=== PATIENT | male | born 1945 | race Caucasian/White ===

== ENCOUNTER 2019-05-31 12:01 | Outpatient (CLI) | payer MEDICARE, SELFPAY ==
[2019-05-31 12:41] LABS: Basophils % 0.5 %; Eosinophils # 0.2 10^3/uL (0.0-0.8); Eosinophils % 2.3 %; Hematocrit 50.5 % (42.0-52.0); Hemoglobin 16.9 g/dL (11.7-16.6); Lymphocytes # 1.9 10^3/uL (0.8-4.8); Lymphocytes % 29.3 %; Mean Corpuscular HGB Conc 33.5 g/dL (30.0-36.0); Mean Corpuscular Hemoglobin 30.1 pg (28.0-34.0); Mean Platelet Volume 9.7 fL (7.4-10.4); Monocytes # 0.5 10^3/uL (0.2-0.9); Monocytes % 7.9 %; Neutrophils # 3.9 10^3/uL (1.8-7.7); Neutrophils % 59.7 %; Nucleated Red Blood Cells % 0 %; Platelet Count 217 10^3/cmm (130-400); Red Blood Count 5.61 10^6/uL (4.1-5.3); Red Cell Distribution Width 13.2 % (12.1-15.1); White Blood Count 6.6 10^3/uL (4.0-10.0)
[2019-05-31 13:05] LABS: Carcinoembryonic Antigen 0.9 ng/mL (0.0-4.7)
[2019-05-31 13:16] LABS: Alanine Aminotransferase 41 U/L (0-41); Albumin Level 4.1 g/dL (3.5-5.2); Alkaline Phosphatase 75 IU/L (40-130); Aspartate Amino Transferase 28 U/L (0-40); Blood Urea Nitrogen 18 mg/dL (8-23); Calcium 9.9 mg/dL (8.5-10.5); Carbon Dioxide 24 mmol/L (22-29); Chloride 100 mmol/L (98-107); Globulin 3.7 g/dL (1.3-4.6); Glucose 179 mg/dL (65-115); Sodium 138 mmol/L (136-145); Total Bilirubin 0.7 mg/dL (0.15-1.2); Total Protein 7.8 g/dL (6.6-8.7)
--- NOTE | 2019-06-04 13:51 | ONC FU_ITS ---
Dr. Alexis Patient Follow-Up Note Patient: Andrew Moore Unit #: [id number]: 1945 Dicatated By: Skyler Alexis M.D.Date of Visit:May 31, 2019 Onc Med Follow-up/Prog Note Chief Complaint: Rectal cancer. History of Present Illness: This is a 73 year-old man with moderately differentiated adenocarcinoma of the rectum, stage IIIC (ypT3, ypN2, M0). He had presented in November 2013 with a change in bowel habit and he was found on colonoscopy to have an ulcerating friable mass in the rectum involving one half the circumference and extending from 10 cm to 15 cm. The appearance was suspicious for malignancy. Biopsy did show well to moderately differentiated infiltrating adenocarcinoma. Two additional polyps in the colon were found to be adenomatous polyps, and an additional rectal polyp was hyperplastic. He was subsequently evaluated with CT abdomen/pelvis which did show a multi-lobular mass in the right lateral wall of the rectum. There appeared to be infiltration of the adjacent fat as well as abnormal appearance to the lymph nodes in the perirectal fat circumferentially around the rectum. He was referred to Dr. Almaraz in [place]. He subsequently completed additional staging with MRI of the pelvis. That study did confirm the presence of a bulky inferior rectal neoplasm which appeared to be invading through the muscularis propria into the mesorectal fat with either tumor extension or desmoplastic fibrotic reaction. The changes were noted to be extending to near the posterior margin of the mesorectal fascia. Inferiorly the tumor appeared to be extending into the internal sphincter muscle superiorly. There were suspicious lymph nodes both internal and external to the mesorectal fascia. By clinical evaluation his disease appeared to be at least stage IIIB, and most likely stage IIIC (T3, N2, M0). He was given neoadjuvant chemoradiation utilizing Xeloda for the chemosensitization. He completed treatment on 01/17/14 to a total dose of 5040 cGy. He underwent low anterior resection with placement of looped ileostomy in [place] on 02/28/14. Pathology showed low grade adenocarcinoma measuring 2 x 1.8 and 1.2 cm. There was invasion through the muscularis propria into the perirectal adipose tissue. Margins were uninvolved. There was involvement, though, in 8 of 24 lymph nodes. His disease posttreatment was stage IIIC (ypT3, ypN2b, M0). He was given postoperative adjuvant chemotherapy with oxaliplatin/Xeloda. As of 06/13/14 he had completed 4 cycles of treatment. I did opt to stop his chemotherapy at that point, as he was experiencing increasing neuropathy and other side effects. He subsequently was able to undergo takedown of the ileostomy. His other medical illnesses have been limited to hypertension and borderline diabetes. He has not been requiring medication for either problem. He is a nonsmoker. He does have a history of alcohol abuse in the past, but he quit drinking at age 33. INTERIM HISTORY: He had surveillance colonoscopy with Dr. Smart on 08/15/2015. He was noted to have an anal stricture on digital exam. It was dilated digitally. The rectal mucosa was noted to be erythematous. Two 3 mm sessile polyps were removed with cold biopsy forceps. Exam to the cecum was otherwise unremarkable. Pathology showed chronic colitis with limited mild activity. There was no dysplasia identified. I had seen him for a scheduled follow-up visit on 05/09/2016. At that time he was feeling pretty good generally, but he was having significant problems with his bowel function and with associated abdominal distention/bloating. His CEA level had gone up a little, to 5.2 ng/mL. Restaging CT abdomen/pelvis showed evidence of distal large bowel obstruction, possibly due to recurrent neoplasm or anastomotic stricture. There was some abnormal presacral soft tissue noted, felt to be suspicious for recurrent neoplasm. He was then seen by Dr. Almaraz and he underwent placement of a blow hole ostomy for anastomotic stricture. There was apparently no evidence of recurrent tumor. In August he underwent placement of a permanent ostomy. In November 2016 he was found to have evidence of presacral abscess on the right side. He underwent percutaneous placement of a drainage catheter, which he tolerated very poorly. The catheter subsequently was removed. He subsequently had ongoing problems with pain in the right buttock area and persistent drainage at the catheter site. His CT abdomen/pelvis on 12/04/2016 showed a 3 x 2 cm rim-enhancing fluid collection in the presacral pelvis compatible with presacral abscess. There was surrounding soft tissue thickening in the presacral region surrounding the abscess which had increased in thickness compared to a prior study from May 2016. There was no evidence of metastatic involvement. Repeat CT on 05/29/2017 showed extensive presacral soft tissue thickening at the site of the prior rectosigmoidectomy. There was abscess-like collection measuring 4.6 x 3.4 cm in the right perirectal area, consistent with persistent or recurrent abscess. The findings were similar to the November study. Also noted was a new right paraumbilical hernia containing a loop of nondilated small bowel. There was no evidence of recurrent or metastatic disease. He then returned to Dr. Aldana and he again underwent placement of a percutaneous drainage catheter. He tolerated that procedure much better, and within a month or so the catheter was able to be removed. Surveillance CT scans of the chest, abdomen, and pelvis on 05/05/2018 showed no evidence of neoplastic process of the chest. There were stable hepatic and right renal cysts noted. An additional lower pole left renal hyperdense cyst or solid mass also appeared stable from prior exams. Diffuse bladder wall thickening was noted to be less pronounced compared to the study from May 2017. There was persistent diffuse presacral soft tissue thickening and resolution of previously noted right-sided perirectal abscess. At that point he was doing much better clinically, and he continued observation/expectant management for the rectal cancer. He is seen for a scheduled visit. He has been feeling good generally. He has good energy, and his activity now is pretty much normal. His ECOG score is 0. He has good appetite and he has gained weight. He has no fever or night sweats. He recently has had some sinus congestion/nasal stuffiness, and he has had some cough with that. He normally does not have any cough, and he does not complain of shortness of breath or chest pain. He has no GI complaints. His bowel function is generally good with the ostomy. His bladder function has improved. He does have some pain in his right knee. He continues to have some numbness/tingling in his feet. Medications: Joint Support 2 Capsule Oral daily, Multivitamin Adult 1 Tablet Oral daily Allergies: No Known Allergies. Review of Systems: Constitutional - His energy is good. He has normal activity. His appetite is good and his weight is up almost 20 pounds since his last visit. No fever, chills, hot flashes, or night sweats. ECOG score is 0, ENMT - He currently has some sinus congestion. He has a cough with a sore throat. No mouth sores. No difficulty swallowing, Hematologic/Lymphatic - No abnormal bruising or bleeding, Respiratory - No shortness of breath. No pleuritic pain or hemoptysis, Cardiovascular - No angina pain. No palpitations, Gastrointestinal - No nausea or vomiting. No heartburn or acid reflux. He has the colostomy and it is working well. No diarrhea or constipation. No blood in the stool or black stools, Genitourinary (M) - No dysuria or hematuria. No urinary frequency. No urgency or incontinence, Musculoskeletal - He has pain in his right knee, Integumentary - No skin complications, Neurologic - No headache or dizziness. He has neuropathy in his feet, Psychiatric - No anxiety or depression. No insomnia. Vital Signs: Performed on May 31, 2019 13:16 Height - 72.00 in Weight - 263.6 lbs (HIGH) BSA - 2.40 sq.m BMI - 35.75 (HIGH) Temperature - 98.5 F Pulse - 72 /min Respiration - 20 /min BP - 168/92 mm(hg) (HIGH) O2 Sat - 97 % Pain - 0 Physical Examination: Constitutional - He looks good generally, Eyes - Sclerae nonicteric. Conjunctivae clear, ENMT - There are no lesions noted in the oral cavity, Hematologic/Lymphatic - No cervical, clavicular, or axillary adenopathy, Respiratory - Lungs are clear with good air movement bilaterally, Cardiovascular - Heart rhythm is regular. There is no murmur, gallop, or rub noted, Abdomen - Mildly distended but soft. There is a herniation at the ostomy site. Liver and spleen are not enlarged. There is no abdominal mass or ascites noted and there is no inguinal adenopathy, Extremities - No edema. Pedal pulses are palpable bilaterally, Neurologic - No focal neurologic deficits noted. Lab/Imaging: Test performed on May 31, 2019 12:22 Sodium 138 mmol/L Potassium 4.0 mmol/L Chloride 100 mmol/L CO2 24 mmol/L Anion Gap 18.0 BUN 18 mg/dL Creatinine 1.0 mg/dL Cr Clearance (Est) 112.93 mL/min Glucose 179 mg/dL Calcium 9.9 mg/dL Protein, Total 7.8 g/dL Albumin 4.1 g/dL Globulin 3.7 g/dL Bilirubin, Total 0.7 mg/dL ALT (SGPT) 41 U/L AST (SGOT) 28 U/L Alkaline Phosphatase 75 IU/L WBC 6.6 10 3/uL RBC 5.61 10 6/uL HGB 16.9 g/dL HCT 50.5 % MCV 90.0 fL MCH 30.1 pg MCHC 33.5 g/dL RDW 13.2 % Platelet Count 217 10 3/cmm MPV 9.7 fL Neutrophils 3.9 10 3/uL Lymphocytes 1.9 10 3/uL Monocytes 0.5 10 3/uL Eosinophils 0.2 10 3/uL Basophils 0.0 10 3/uL Neutrophil % 59.7 % Lymphocyte % 29.3 % Monocyte % 7.9 % Eosinophil % 2.3 % Basophils % 0.5 % CEA 0.9 ng/mL Impression: 1. The patient has well to moderately differentiated adenocarcinoma of the rectum, stage IIIC, initially diagnosed in November 2013. 2. Treatment included neoadjuvant chemoradiation followed by surgical resection in February 2014. He had a complete resection, but pathology did show involvement in 8 of 24 lymph nodes. 3. He was given postoperative adjuvant chemotherapy with oxaliplatin/Xeloda. He did require a dose reduction in the oxaliplatin with the 3rd cycle due to significant worsening of neuropathy symptoms, and I did opt to stop his treatment after 4 cycles, which he completed in June 2014. 4. He subsequently was able to undergo reversal of the ileostomy, and he has since then continued observation/expectant management. His other medical illnesses include: 5. Hypertension. 6. Borderline diabetes. 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 He also had evidence of stricture on his surveillance colonoscopy in August 2015. On his follow-up visit in May 2016 there was a significant increase in his CEA level. His surveillance CT scans showed evidence of distal large bowel obstruction. He was referred to Dr. Almaraz, and he underwent placement of blow hole ostomy. In August 2016 he underwent placement of permanent ostomy. In November 2016 he was found to have presacral abscess on the right side. He underwent placement of percutaneous drainage catheter, which he tolerated poorly. The catheter subsequently was removed. He then continued to have some pain in the right buttock area, and he continued to have drainage at the catheter site. His repeat CT scan in May 2017 showed persistent perirectal abscess on the right side. There was no evidence of recurrent or metastatic disease. He then underwent replacement of the percutaneous drainage catheter, which he tolerated much better. Within a month or so the catheter was able to be removed. He has since then remained on observation/expectant management. He has developed hypertension. He has otherwise been doing well clinically with no evidence of recurrence of the rectal cancer. Plan: He will start lisinopril 5 mg daily for the hypertension. He will continue on observation/expectant management for the rectal cancer. He should have yearly lab screening with CBC, CMP, and CEA level. He should had further CT imaging only as indicated based on symptoms or findings. He is going to continue regular follow-up now with Dr. Obrien, and he also will continue his regular follow-up with Dr. Almaraz. I will just see him again as needed. Signed By: Skyler Alexis M.D. <<Signature on File>>
== END 2019-05-31 12:02 | disposition home or self-care (01) ==
LOC: ONCMED 12:01
PROVIDERS: Family Provider Nurse Practitioner Family; PCP Family Medicine; Visit Provider Internal Medicine Medical Oncology
DX: Z08 Encounter for follow-up examination after completed treatment for malignant neoplasm (principal); Z85.048 Personal history of other malignant neoplasm of rectum, rectosigmoid junction, and anus; I10 Essential (primary) hypertension; R73.03 Prediabetes; M25.561 Pain in right knee; Z92.21 Personal history of antineoplastic chemotherapy; Z92.3 Personal history of irradiation
CPT/HCPCS: 36415; 80053; 82378; 85025; G0463

== ENCOUNTER → 2019-09-14 15:23 | Outpatient (BNVA) | payer MEDICARE, SELFPAY | PROVIDERS: Family Provider Nurse Practitioner Family; PCP Family Medicine; Visit Provider Family Medicine | DX: I10 Essential (primary) hypertension (principal); N52.9 Male erectile dysfunction, unspecified; R73.9 Hyperglycemia, unspecified | CPT/HCPCS: 36416; 82962 ==

== ENCOUNTER → 2020-02-28 11:49 | Outpatient (BNVA) | payer MEDICARE, SELFPAY | PROVIDERS: PCP Family Medicine; Visit Provider Nurse Practitioner Family | DX: Z11.59 Encounter for screening for other viral diseases (principal) | CPT/HCPCS: 87635 ==

== ENCOUNTER 2020-02-29 11:31 | Emergency (ER) | payer MEDICARE, SELFPAY ==
[2020-02-29 11:39] VITALS: BP 176/98; PULSE 75; RESP 18; TEMP 36.5; O2SAT 94; BMI 33.9
--- NOTE | 2020-02-29 11:54 | US_ITS ---
WS: [id number] ABDOMINAL ULTRASOUND LIMITED REASON FOR VISIT: abd pain TECHNIQUE: Grayscale and Doppler ultrasound examination of the abdomen. FINDINGS: Pancreas: Not diagnostically visualized. Abdominal aorta and IVC: Visualized portions were unremarkable. Liver: Liver measures 16.1 cm in length. Echotexture was heterogeneous. There were several small low- attenuation regions in the liver adjacent to the gallbladder. Normal portal venous blood flow. Gallbladder: Gallbladder wall thickness measures 0.3 mm. No calculus was demonstrated. Common bile du ct was normal caliber. Right kidney: Right kidney measures 12.1 cm x 6.4 cm x 7.2 cm. Right kidney cortex measures 1.3 cm. N o hydronephrosis or calculus. There is a sonolucent mass which measures 3.56 x 3.33 cm. No free fluid. US/US gall bladder [id number] IMPRESSION: Difficult examination due to the anatomy of the liver and its relation to the g as-filled colon. Although no gallbladder calculi were at this time, a 9 mm calcified stone was p resent on the CT scan of 05/05/2018. The sonolucent mass in the right kidney was shown to be a renal cyst on the abo ve CT scan. The small sonolucencies in the liver are of some concern. The patient had some small cystic like areas and other vague areas of low-attenuation in the liver o n the above-mentioned CT scan, however these lesions do not appear to correlate . Due to the patient's history of rectal carcinoma a [address] scan of the [facility] er to evaluate for metastasis would be reasonable.
--- NOTE | 2020-02-29 11:54 | ECG_ITS ---
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
--- NOTE | 2020-02-29 11:55 | W.ED.ABDPA2 ---
HPI - Abdominal Pain General: Chief Complaint: Abdominal Pain Stated Complaint: ABD PAIN Time Seen by Provider: 02/29/20 11:47 Source: patient Mode of arrival: ambulatory Limitations: no limitations History of Present Illness: HPI narrative: 74-year-old male states he had right upper quadrant abdominal pain since Friday. He states that it subsided for a while and has returned. States it is worse when he twists or palpation. Improved with rest. No association with food. States pain is currently 3 out of 10. Denies any vomiting or fever. Denies any chest pain. MD elicited complaint: abdominal pain Associated Symptoms: Denies chills, dysuria and fever(s) Review of Systems Const: Denies: fever(s), chills, body aches or change in appetite Eyes: Denies: blurry vision or eye discomfort ENMT: Denies: throat pain or dental pain Card: Denies: chest pain Resp: Denies: dyspnea GI: Reports: abdominal pain : Denies: dysuria Musc: Denies: neck pain or back pain Skin/Breast: Denies: rash Neuro: Denies: headache(s) Psych: Denies: depression Cristian/Lymph: Denies: easy bruising All/Imm: Denies: urticaria PFSH ED PFSH: Medical History (Updated 02/29/20 @ 16:10 by Osito Adan MD) Erectile dysfunction Surgical History (Updated 02/28/20 @ 13:52 by Nela Huerta APRN) History of colon resection Family History (Updated 09/14/19 @ 14:57 by Arpan He LPN) Other Prostate cancer Social History (Updated 02/29/20 @ 11:45 by Robbin Ward RN) Smoking and tobacco status: never smoked Second hand smoke exposure: No Smoking risk assessment/counseling performed?: No Alcohol intake: never Physical Exam Const: COMMON NORMALS: no acute distress, patient oriented x3 and healthy appearing HENMT: COMMON NORMALS: normocephalic and atraumatic HEAD & SCALP: normocephalic and atraumatic Eye: COMMON NORMALS: Equal, round and reactive pupils present and EOMs intact bilaterally PUPIL: Yes Equal, round and reactive pupils present Neck/C-Spine: COMMON NORMALS: full ROM and supple Chest: COMMONS NORMALS: normal inspection of the chest and normal palpation of entire chest wall Resp: COMMON NORMALS: normal respiratory effort, No retractions, No use of accessory muscles and clear to auscultation bilaterally AUSCULTATION: clear to auscultation bilaterally Cardio: COMMON NORMALS: regular rate, regular rhythm and No murmurs present (Cardio) RATE: regular rate RHYTHM: regular rhythm GI: COMMON NORMALS: Normal to inspection, nondistended, normoactive bowel sounds present, Soft to palpation and no masses PALPATION: Yes Soft to palpation OTHER: Slight tenderness over right upper quadrant and right mid abdomen Extremity: COMMON NORMALS: normal to inspection and full ROM Neuro: COMMON NORMALS: patient oriented x3, moves all extremities and no focal motor deficits Psych: COMMON NORMALS: mental status grossly normal, Normal thought process present and cooperative THOUGHT PROCESS: Normal thought process present Skin: COMMON NORMALS: no rashes or lesions noted and no wounds GENERAL SKIN EXAM: no rashes or lesions noted Course Vital Signs: Vital signs: Vital Signs Temperature 97.7 F 02/29/20 11:39 Pulse Rate 75 02/29/20 11:39 Respiratory Rate 18 02/29/20 12:41 Blood Pressure 176/98 02/29/20 11:39 Pulse Oximetry 96 02/29/20 12:41 MDM - Abdominal Pain MDM Narrative: Medical decision making narrative: Andrew presents here with abdominal pain with likely cholecystitis. Patient's white count here is normal and he is pain-free. I spoke to surgeon on-call and also spoke with patient and came to agreement that he would follow-up outpatient and have outpatient surgery. He is to see Dr. Javed in his office tomorrow at 1130. We will start him on Augmentin. I did inform patient if he has any increase of pain or fever he is to return immediately. He understands and agrees to this plan. Lab Data: Labs: Lab Results 02/29/20 02/29/20 02/29/20 Range/Units 12:10 12:10 13:08 WBC 8.4 (4.0-10.0) 10^3/ uL RBC 5.31 H (4.1-5.3) 10^6/u L Hgb 15.6 (11.7-16.6) g/dL Hct 48.8 (42.0-52.0) % MCV 91.9 (80-94) fL MCH 29.4 (28.0-34.0) pg MCHC 32.0 (30.0-36.0) g/dL RDW 13.2 (12.1-15.1) % Plt Count 237 (130-400) 10^3/c mm MPV 9.7 (7.4-10.4) fL Neut % (Auto) 65.4 % Lymph % (Auto) 19.1 % Crenshaw % (Auto) 11.6 % Eos % (Auto) 2.9 % Baso % (Auto) 0.6 % Neut # (Auto) 5.50 (1.8-7.7) 10^3/u L Lymph # (Auto) 1.6 (0.8-4.8) 10^3/u L Crenshaw # (Auto) 1.0 H (0.2-0.9) 10^3/u L Eos # (Auto) 0.2 (0.0-0.8) 10^3/u L Baso # (Auto) 0.1 (0.0-0.1) 10^3/u L Nucleated RBC % (a uto) 0 % Nucleated RBCs # 0.0 /100WBC Sodium 137 (136-145) mmol/L Potassium 3.5 (3.5-5.1) mmol/L Chloride 98 (98-107) mmol/L Carbon Dioxide 25 (22-29) mmol/L Anion Gap 17.5 (5-19) BUN 16 (8-23) mg/dL Creatinine 0.9 (0.7-1.2) mg/dL GFR Calculation Not Reportable Glucose 129 H (65-115) mg/dL Calculated Osmolal ity 287 (285-295) mOsm/k g Calcium 8.8 (8.5-10.5) mg/dL Total Bilirubin 0.8 (0.15-1.2) mg/dL AST 29 (0-40) U/L ALT 55 H (0-41) U/L Alkaline Phosphata se 80 (40-130) IU/L Total Protein 7.1 (6.6-8.7) g/dL Albumin 3.9 (3.5-5.2) g/dL Globulin 3.2 (1.3-4.6) g/dL Lipase 31 (13-60) U/L Urine Color Yellow (Yellow) Urine Appearance Clear (CLEAR) Urine pH 5.0 (5-7) Ur Specific Gravit y 1.015 (1.005-1.030) Urine Protein Neg (Negative) Urine Glucose (UA) Norm (Normal) Urine Ketones Negative (Negative) Urine Blood Neg (Negative) Urine Nitrate Negative (Negative) Urine Bilirubin Neg (Negative) Urine Urobilinogen 1 H (Negative) mg/dL Ur Leukocyte Karoline ase Negative (Negative) Imaging Data ^: CT Abd/Pel: Radiologist's impression: [address] [place] [address] CT Scan Report Signed Patient: Andrew Moore Unit #: [id number] : 1945 Age/Sex: 74 / M ADM Date: 02/29/20 Loc: ER Room/Bed: Attending Dr: Ordering Provider/Ordering MD: Osito Adan MD Date of Service: 02/29/20 Procedure(s): CT abdomen pelvis w con* [id number] Accession Number(s): [id number] Report Number: [id number] WS: [id number] CT abdomen pelvis w con* [id number] REASON FOR EXAM: abd pain IV CONTRAST ADMINISTERED: 95 mL of Omnipaque 300. TOTAL EXAM DLP: 1664.[address] scans at [facility] use at least one of these dose optimization techniques: automated exposure control; mA and/or kV adjustment per patient size (includes targeted exams where dose is matched to clinical indication); or iterative reconstruction. FINDINGS: ABDOMEN: Comparison examination 05/05/2018. Spleen and pancreas are unchanged and without focal abnormality. Several 1 mm to 2 mm cysts are seen within the liver. No definite metastatic disease. The gallbladder wall is thickened and enhancing compared to the previous examination and on axial image 26 there is a thin line of low attenuation. The liver adjacent to the gallbladder shows inhomogeneity in enhancement but overall enhances more than the remainder of the liver. The calculus previously seen in the body of the gallbladder is now within the distal most neck adjacent to the cystic duct. The gallbladder wall is most thickened in this region and there is hazy density in the adjacent fat. A calcified calculus is approximately 8 to 9 mm in diameter. Ostomy site in the left lower quadrant. Herniation of fat and bowel through the defect in the anterior abdominal wall at this location. More superiorly there is a large periumbilical hernia through a large defect in the abdominal wall. It contains fat and small bowel. The appendix is not identified however there are no inflammatory changes in the fat of the right abdomen. The kidneys are unchanged with several small cysts and a 3 to have centimeters cyst in the right kidney and a 2 cm cyst in the left kidney. No renal calculi. No ureteral calculi. No abdominal adenopathy or mass. No focal fluid or free fluid. PELVIS: This portion of the examination is compared to a previous study of 05/29/2017. There is thickening of the urinary bladder wall. There is a presacral mass which measures 6 cm in maximal dimension. The previous examination it measured 9.5 cm in maximum dimension. There are no fluid attenuation regions within this mass as noted on the previous study. CT/CT abdomen pelvis w con* [id number] IMPRESSION: Cholelithiasis and cholecystitis. The calculus is felt to be obstructing the gallbladder neck and the gallbladder wall is inflamed and with some edema. There are reactive changes in the fat and adjacent liver. Hernias as noted above. No liver metastases. 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 The mass is smaller than on the previous examination but still measures 6 cm in diameter. EKG Data ^: EKG 1: Attestation: I personally reviewed and interpreted this EKG as follows: EKG interpretation date: 02/29/20 EKG interpretation time: 13:09 Interpretation: nsr hr [address] or t wave abnormalities qrs 91 qtc 343 Discharge Plan Discharge Patient Disposition: Home Clinical Impression: Cholecystitis Condition: Stable Prescriptions: New ondansetron 4 mg tablet,disintegrating 4 mg PO Q6H PRN (Reason: nausea and vomiting) Qty: 14 RF: 0 Augmentin 875-125 mg tablet 1 tab PO BID Qty: 14 RF: 0 No Action geriatric [id number]-ldqd-cmib Tablet 1 tab PO DAILY RF: 0 omega-3 fatty acids [Fish Oil Concentrate] 1,000 mg capsule 1,000 mg PO DAILY RF: 0 sildenafil 100 mg tablet 100 mg PO DAILY PRN (Reason: sexual activity) Qty: 10 RF: 3 losartan 50 mg tablet 50 mg PO DAILY Qty: 90 RF: 3 glucosamine HCl 750 mg tablet 750 mg PO BID RF: 0 Discharge Orders: Discharge Order (Routine); Ordered 02/29/20 Ordered By: Osito Adan Referrals: Gilda Obrien MD [Primary Care Provider] - Ham Javed MD [Physician] - (appt tomorrow at 1130) Discharge Diet: Advance as tolerated Discharge Activity: Resume usual activity Coding Level of Care Code ED Accounting Intern for Chg Fwd Exam Comprehensive
[2020-02-29 12:26] LABS: Basophils # 0.1 10^3/uL (0.0-0.1); Basophils % 0.6 %; Eosinophils # 0.2 10^3/uL (0.0-0.8); Eosinophils % 2.9 %; Hematocrit 48.8 % (42.0-52.0); Hemoglobin 15.6 g/dL (11.7-16.6); Lymphocytes # 1.6 10^3/uL (0.8-4.8); Lymphocytes % 19.1 %; Mean Corpuscular Hemoglobin 29.4 pg (28.0-34.0); Mean Corpuscular Volume 91.9 fL (80-94); Mean Platelet Volume 9.7 fL (7.4-10.4); Monocytes % 11.6 %; Neutrophils % 65.4 %; Nucleated Red Blood Cells % 0 %; Platelet Count 237 10^3/cmm (130-400); Red Blood Count 5.31 10^6/uL (4.1-5.3); Red Cell Distribution Width 13.2 % (12.1-15.1); White Blood Count 8.4 10^3/uL (4.0-10.0)
[2020-02-29 12:41] VITALS: RESP 18; O2SAT 96
[2020-02-29] MEDS: morphine 4 mg/mL SDV 1 mL IVP (12:41)
[2020-02-29] MEDS: ondansetron 2 mg/ML SDV 2 mL 4 MG IVP (12:43)
[2020-02-29 12:54] LABS: Alanine Aminotransferase 55 U/L (0-41); Albumin Level 3.9 g/dL (3.5-5.2); Alkaline Phosphatase 80 IU/L (40-130); Anion Gap 17.5 (5-19); Aspartate Amino Transferase 29 U/L (0-40); Blood Urea Nitrogen 16 mg/dL (8-23); Calcium 8.8 mg/dL (8.5-10.5); Carbon Dioxide 25 mmol/L (22-29); Chloride 98 mmol/L (98-107); Globulin 3.2 g/dL (1.3-4.6); Glucose 129 mg/dL (65-115); Lipase 31 U/L (13-60); Osmolality Calculated 287 mOsm/kg (285-295); Potassium 3.5 mmol/L (3.5-5.1); Sodium 137 mmol/L (136-145); Total Bilirubin 0.8 mg/dL (0.15-1.2); Total Protein 7.1 g/dL (6.6-8.7)
[2020-02-29 13:24] LABS: Add Urine Microscopic? NO
--- NOTE | 2020-02-29 13:25 | CT_ITS ---
WS: [id number] CT abdomen pelvis w con* [id number] REASON FOR EXAM: abd pain IV CONTRAST ADMINISTERED: 95 mL of Omnipaque 300. TOTAL EXAM DLP: 1664.[address] scans at [facility] use at least one of these dose optimization techniques: automat ed exposure control; mA and/or kV adjustment per patient size (includes targeted exams where dose is matched to clinical indication); or iterative reconstruction. FINDINGS: ABDOMEN: Comparison examination 05/05/2018. Spleen and pancreas are unchanged and without focal abnormality. Several 1 mm to 2 mm cysts are seen within the liver. No definite metastatic disease. The gallbladder wall is thickened and enhancing compared to the previous examination and on axial johana ge 26 there is a thin line of low attenuation. The liver adjacent to the gallbladder shows inhomogene ity in enhancement but overall enhances more than the remainder of the liver. The calculus previously seen in the body of the gallbladder is now within the distal most neck adjacent to the cystic duct. The gallbladder wall is most thickened in this region and there is hazy density in the adjacent fat. A calcified calculus is approximately 8 to 9 mm in diameter. Ostomy site in the left lower quadrant. Herniation of fat and bowel through the defect in the anterio r abdominal wall at this location. More superiorly there is a large periumbilical hernia through a la rge defect in the abdominal wall. It contains fat and small bowel. The appendix is not identified how ever there are no inflammatory changes in the fat of the right abdomen. The kidneys are unchanged with several small cysts and a 3 to have centimeters cyst in the right kidn ey and a 2 cm cyst in the left kidney. No renal calculi. No ureteral calculi. No abdominal adenopathy or mass. No focal fluid or free fluid. PELVIS: This portion of the examination is compared to a previous study of 05/29/2017. There is thickening of the urinary bladder wall. There is a presacral mass which measures 6 cm in max imal dimension. The previous examination it measured 9.5 cm in maximum dimension. There are no fluid attenuation regions within this mass as noted on the previous study. CT/CT abdomen pelvis w con* [id number] IMPRESSION: Cholelithiasis and cholecystitis. The calculus is felt to be obstructing the ga llbladder neck and the gallbladder wall is inflamed and with some edema. There are reactive changes in the fat and adjacent liver. Hernias as noted above. No liver metastases. 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 The mass is sm aller than on the previous examination but still measures 6 cm in diameter.
[2020-02-29 13:44] LABS: Bilirubin Urine Neg (Negative); Blood Urine Neg (Negative); Glucose Urine UA Norm (Normal); Ketones Urine Negative (Negative); Leukocyte Esterase Urine Negative (Negative); Nitrate Urine Negative (Negative); Protein Urine Neg (Negative); Specific Gravity, Urine 1.015 (1.005-1.030); Urine Appearance Clear (CLEAR); Urine Color Yellow (Yellow); Urobilinogen Urine 1 mg/dL (Negative)
[2020-02-29] MEDS: iohexol 300 mg/mL 100 mL Btl IV (15:03)
[2020-02-29 16:22] VITALS: BP 138/59; PULSE 67; RESP 18; O2SAT 98
--- NOTE | 2020-03-01 09:17 | DCPLANNER ---
manager molecular was asked to schedule a follow up appointment for patient with Dr. Javed for 03.01.20. manager molecular called [facility], spoke with Brianne, gave patients information. A follow up appointment was scheduled for Friday, March 01, 2020 at 1:[address] Javed. manager molecular informed ER physician and patient of the scheduled appointment.
--- NOTE | 2020-03-09 15:13 | DCPLANNER ---
Patient had a follow up appointment scheduled for 03.01.[address] Javed at general surgery - patient did attend appointment.
== END 2020-02-29 16:28 | disposition home or self-care (01) ==
PROVIDERS: Emergency Provider Emergency Medicine; PCP Family Medicine
DX: K81.9 Cholecystitis, unspecified (principal)
CPT/HCPCS: 12345; 74177; 76705; 80053; 81003; 83690; 85025; 93005; 96374; 96375; 99281; 99283; J2270; J2405; Q9967

== ENCOUNTER → 2020-05-18 10:38 | Outpatient (BNVA) | payer MEDICARE, SELFPAY | PROVIDERS: PCP Family Medicine; Visit Provider Registered Nurse | DX: L98.9 Disorder of the skin and subcutaneous tissue, unspecified (principal) | CPT/HCPCS: 88305 ==

== ENCOUNTER → 2021-02-08 14:47 | Outpatient (BNVA) | payer MEDICARE, SELFPAY | PROVIDERS: PCP Family Medicine; Visit Provider Registered Nurse | DX: I10 Essential (primary) hypertension (principal); E78.5 Hyperlipidemia, unspecified; N52.9 Male erectile dysfunction, unspecified | CPT/HCPCS: 80053; 80061; 85025 ==

== ENCOUNTER → 2022-01-24 12:54 | Outpatient (BNVA) | payer MEDICARE, SELFPAY | PROVIDERS: PCP Family Medicine; Visit Provider Nurse Practitioner Family | DX: R39.9 Unspecified symptoms and signs involving the genitourinary system (principal); C44.91 Basal cell carcinoma of skin, unspecified; N40.0 Benign prostatic hyperplasia without lower urinary tract symptoms | CPT/HCPCS: 81000 ==

== ENCOUNTER 2022-07-17 14:30 | Emergency (ER) | payer MEDICARE, SELFPAY ==
[2022-07-17 14:52] LABS: ABG PCO2 45.8 mmHg (35-45); Alveolar-Arterial Oxygen Gradi 79.2 mmHg (5-10); Arterial Blood Gas Hematocrit 54.6 % (42-52); Base Excess ABG -12.4 mmol/L (-2.0-2.0); Blood Gas Allen Test Pos; Blood Gas Operator Identificat glc; Blood Gas Sample Site Radial, left; Blood Gas Sample Type Arterial; Carboxyhemoglobin 0.7 %THgb (0.4-20.1); HCO3 ABG 16.2 mmol/L (22-26); HGB O2 Sat 74.6 % (95-100); Ionized Calcium Level - ABG 1.2 mmol/L (1.1-1.4); Methemoglobin 0.3 % (0.4-1.5); Oxygen Device AMBU; Oxygen Saturation ABG 75.4; PO2 ABG 50.2 mmHg (80.0-100.0); Potassium Level - ABG 4.4 mmol/L (3.5-5.0); Total Hemoglobin 17.8 g/dL (14-18)
--- NOTE | 2022-07-17 14:54 | ED_ITS ---
HPI - CPR General: Stated Complaint: CODE BLUE Time Seen by Provider: 07/17/22 14:40 History of Present Illness: 76-year-old male pulled out of passenger side of an SUV. He was unconscious and gurgling. Patient did not have a pulse. He had to be lifted onto a gurney. He was brought into the emergency department with ongoing CPR started in the parking lot. The patient's presenting rhythm once he was hooked up was ventricular fibrillation. He was shocked with 200 J. CPR was resumed. Epinephrine was given. This was continued through the ACLS protocol. He did not respond to the first 2 shocks. He was given 300 mg of amiodarone. I intubated the patient during CPR. There was vomitus in his hypopharynx. After a few rounds of CPR we were able to obtain an organized rhythm. It was wide- complex. I did not see any P waves. Patient was taken to the resuscitation room and amiodarone drip was started. Patient had bradycardia and had PEA arrest shortly after ROSC. Atropine was given and CPR resumed. I spoke with the nursing staff and we are trying to make it a priority to get an EKG as long as the patient becomes stabilized. In the meantime, we will continue ACLS protocol. Review of Systems General: Reports: ROS unobtainable due to medical condition [facility] ED PFSH: Medical History Erectile dysfunction Essential hypertension Surgical History History of colon resection Family History Father Prostate cancer Denies family history of Diabetes CAD (coronary artery disease) Chronic kidney disease (CKD) Social History Smoking and tobacco status: never smoked Second hand smoke exposure: No Smoking risk assessment/counseling performed?: No Alcohol intake: never Physical Exam Narrative: EXAM NARRATIVE: Elderly obese male pulled out of the front passenger side of an SUV. Patient was unresponsive and gurgling. He did not have a pulse. His respirations were shallow and slow. CPR was initiated. Skin was pale. No signs of trauma. No diaphoresis. Course Vital Signs: Vital signs: Vital Signs Respiratory Rate 31 H 07/17/22 15:30 Fraction of Inspir ed Oxygen 100 07/17/22 15:30 MDM - Cardiac Arrest/CPR Medical Decision Making Summary statement. The patient had V-fib arrest and was treated with amiodarone and defibrillation. Dual sequential defibrillation was also utilized. The patient did get ROSC for approximately 5 minutes. He then had PEA arrest. CPR was initiated again. The patient achieved ROSC again. During all of this I had intubated the patient and 2 IO lines were placed in the lower extremities in the tibia. I had also consulted with the interventionalist--Dr Cummings. He has come to ER. says he woke up with shoulder/neck pain and was not feeling well today. He collapsed in the car approximately 5 min prior to arrival. Each time we got ROSC he seemed to gautam down and go back into PEA. We could not stabilize him for laboratory coordinator. EKG obtained during pulse check shows wide complex bradycaria , possibly ventricular origin. THere are j point elevations in III, probably aVF, and depression aVL. Abnormal ST morphology throughout precordium. After more than an hour of maximal effort ACLS and inability to stabilize patient + 5 min of downtime prior to hospital arrival, I advised family that we should stop resuscitation efforts. I advised about increasingly small chance of survival and increasingly very high chance that IF he survived he would not be neurologically intact. Time of is 1546. Cause of : cardiac arrest Critical Care Time : 90 minutes Lab Data Laboratory Results Specimen Type Arterial 07/17/22 15:20 Sample Site Radial, right 07/17/22 15:20 ABG pH 7.07 (7.35-7.45) L* 07/17/22 15:20 ABG pCO2 48.4 mmHg (35-45) H 07/17/22 15:20 ABG pO2 46.4 mmHg (80.0-100.0) L 07/17/22 15:20 ABG HCO3 14.1 mmol/L (22-26) L 07/17/22 15:20 ABG O2 Saturation 65.6 07/17/22 15:20 ABG Base Excess -16.1 mmol/L (-2.0-2.0) L 07/17/22 15:20 Cl Test Pos 07/17/22 15:20 A-a O2 Gradient 79.3 mmHg (5-10) H 07/17/22 15:20 Hematocrit 49.6 % (42-52) 07/17/22 15:20 Hgb O2 Saturation 64.7 % (95-100) L 07/17/22 15:20 Carboxyhemoglobin 0.8 %THgb (0.4-20.1) 07/17/22 15:20 Methemoglobin 0.5 % (0.4-1.5) 07/17/22 15:20 Total Hemoglobin 16.2 g/dL (14-18) 07/17/22 15:20 Sodium 139.0 mmol/L (131-143) 07/17/22 15:20 Potassium 3.7 mmol/L (3.5-5.0) 07/17/22 15:20 Glucose 384.0 mg/dL (70-115) H 07/17/22 15:20 Ionized Calcium 1.1 mmol/L (1.1-1.4) 07/17/22 15:20 O2 Delivery Device Vent 07/17/22 15:20 FiO2 100.0 % 07/17/22 15:20 Dot Net Architect ID [email or web address] 07/17/22 15:20 Discharge Plan Discharge Patient Disposition: Clinical Impression: Cardiac arrest with ventricular fibrillation Coding Level of Care Code ED Humid System Operator for Cristobal Rojas
[2022-07-17] MEDS: EPINEPHrine 2.5 MG in sodium chloride 0.9% 250 ML 6.06 MG IV (15:00)
[2022-07-17] MEDS: lidocaine drip 2,000 MG/500 ML PREMIX 15 MG IV (15:12)
[2022-07-17 15:21] LABS: ABG PH Result 7.16 (7.35-7.45)
--- NOTE | 2022-07-17 15:23 | PC.PHAR ---
PT AND PTS FAMILY UNABLE TO VERIFY MEDICATIONS-MEDICATIONS ENTERED ARE MEDS THAT EXT SHOWS HAS BEEN FILLED RECENTLY AND WHAT WAS ON PREVIOUSLY ENTERED MED LIST- EXT MED HISTORY SHOWS FINASTERIDE 5MG DAILY FILLED 03/27/22 90D/S WHEN YOU AUDIT THE MEDS IT SHOWS DCED ON 05/09/22 9:41 BY MILLI VELARDE -NOTES ARE MADE IN THE PHARMACY COMMENTS
[2022-07-17 15:30] VITALS: RESP 31
[2022-07-17 15:33] LABS: ABG PCO2 48.4 mmHg (35-45); ABG PH Result 7.07 (7.35-7.45); Alveolar-Arterial Oxygen Gradi 79.3 mmHg (5-10); Arterial Blood Gas Hematocrit 49.6 % (42-52); Base Excess ABG -16.1 mmol/L (-2.0-2.0); Blood Gas Allen Test Pos; Blood Gas Operator Identificat glc; Blood Gas Sample Site Radial, right; Blood Gas Sample Type Arterial; Carboxyhemoglobin 0.8 %THgb (0.4-20.1); HCO3 ABG 14.1 mmol/L (22-26); HGB O2 Sat 64.7 % (95-100); Ionized Calcium Level - ABG 1.1 mmol/L (1.1-1.4); Methemoglobin 0.5 % (0.4-1.5); Oxygen Device VENT; Oxygen Saturation ABG 65.6; PO2 ABG 46.4 mmHg (80.0-100.0); Potassium Level - ABG 3.7 mmol/L (3.5-5.0); Total Hemoglobin 16.2 g/dL (14-18)
--- NOTE | 2022-07-17 15:52 | PM.CONSULT ---
Providers/Reason For Consult Consulting Physician/Specialty*: Mahin Cummings MD/Interventional Cardiology Reason for Consult*: VFib arrest Requesting Physician: Dr John Attending Physician: Delgado العراقي Primary Care Provider: Gilda Obrien MD History of Present Illness History of Present Illness Andrew Moore is a 76 year old male with past medical history of hypertension was brought by his to the ER. He was unconscious. He was found to be in V-fib. He obtained ROSC only briefly. Interventional cardiology was consulted for possible emergent cardiac catheterization. EKG was of poor quality however inferior ST elevation [place] could not be ruled out. According to patient's , he was complaining of neck pain since morning. He was unconscious for about 5 to 10 minutes before arriving to the emergency room. After brief ROSC he again went into PEA and could not be resuscitated. Review of Systems General: Reports: ROS unobtainable due to medical condition Medications/Allergies Home Medications Medication Instructions Recorded Confirmed Last Taken Type glucosamine HCl 750 mg tablet 750 mg PO BID 05/17/19 07/17/22 02/29/20 History geriatric gtczxndi-dnou-jewz 1 tab PO DAILY 09/14/19 07/17/22 02/29/20 History omega-3 fatty acids 1,000 mg 1,000 mg PO DAILY 09/14/19 07/17/22 02/29/20 History capsule (Fish Oil Concentrate) amlodipine 10 mg tablet 10 mg PO DAILY 07/17/22 07/17/22 Unknown History losartan 100 mg tablet 100 mg PO DAILY 07/17/22 07/17/22 Unknown History sildenafil 100 mg tablet 100 mg PO DAILY PRN Erectile 07/17/22 07/17/22 Unknown History Dysfunction tamsulosin 0.4 mg capsule 0.4 mg PO DAILY 07/17/22 07/17/22 Unknown History Allergies Allergy/AdvReac Type Severity Reaction Status Date / Time No Known Allergies Allergy Verified 05/30/22 11:09 PFSH Acute PFSH: Medical History Erectile dysfunction Essential hypertension Surgical History History of colon resection Family History Father Prostate cancer Denies family history of Diabetes CAD (coronary artery disease) Chronic kidney disease (CKD) Social History Smoking and tobacco status: never smoked Second hand smoke exposure: No Smoking risk assessment/counseling performed?: No Alcohol intake: never Substance/Drug Use: never Vitals/I&O/Wt Last Vital Signs Resp 31 H 07/17/22 15:30 FiO2 100 07/17/22 15:30 Physical Exam Narrative: GENERAL: Patient unconscious and intubated. CPR going on. A&P Assessment and plan (1) Cardiac arrest with ventricular fibrillation: (2) Essential hypertension: Plan Patient had prolonged CPR attempts however could not be stabilized. Patient had no CPR while at was driven to the emergency room. He was unconscious for about 5 to 10 minutes. Chances of survival and meaningful recovery are extremely low. We attempted to stabilize rhythm with amiodarone/lidocaine in addition to ongoing ACLS. Cardiac earth science laboratory technician was also activated in case he became stable for transfer. Family decided to stop further attempts for resuscitation. Thank you for involving us with care of the patient. Consult Attestations Medical Necessity Statement: Care not expected to cross 2 midnights. Coding Level of Care Code Acute Code for [facility] Diagnoses Cardiac arrest with ventricular fibrillation I46.9; I49.01 Essential hypertension I10
--- NOTE | 2022-07-17 16:00 | PC.NURSE ---
pt was brought to ED POV by private vehicle unresponsive. CPR started in vehicle, pt put on er bed and transferred into er, cpr continued throughout transfer. osmar Hussein kept record of code and medications refer to code sheet. TOD called by Dora at 2904
--- NOTE | 2022-07-17 16:41 | ECG_ITS ---
[facility] Date: 2022-07-17 Pat Name: Andrew Moore Department: Room: Gender: Male Automated Logistics Specialist: : 1945 Requested By: Grant John Order Number: [id number] Malachi MD: Mahin Cummings M.D. Measurements Intervals [place] Rate: 71 P: 0 VT: 0 QRS: 218 QRSD: 152 T: 120 QT: 367 QTc: 400 Interpretive Statements ATRIAL FIBRILLATION RIGHT AXIS DEVIATION [QRS AXIS > 100] RIGHT BUNDLE BRANCH BLOCK [120+ ms QRS DURATION, UPRIGHT V1, 40+ ms S IN I/aVL/V4/V5/V6] MARKED ST DEPRESSION, CONSIDER SUBENDOCARDIAL INJURY [0.2+ mV ST DEPRESSION] Compared to ECG 02/29/2020 13:09:04 Right-axis deviation now present Right bundle-branch block now present ST (T wave) deviation now present Sinus rhythm no longer present T-wave abnormality no longer present Electronically Signed On 07-17-2022 16:22:55 CDT by Mahin Cummings M.D. [email or web address]
== END 2022-07-17 17:28 | disposition expired ==
LOC: ER 15:00 → ICU 15:38
PROVIDERS: Emergency Provider Emergency Medicine; PCP Family Medicine
DX: I46.9 Cardiac arrest, cause unspecified (principal); I10 Essential (primary) hypertension
CPT/HCPCS: 31500; 36600; 80051; 82330; 82805; 93005; 94002; 96374; 96375; 99291; J0171; J0282; J0461; J2001; J3490; J7050; J7060